=== PATIENT | male | born 1940 | race Caucasian/White ===

== ENCOUNTER 2017-11-25 03:04 | Emergency (ER) | payer MEDICARE ==
[~2017-11-25] VITALS: Ht 182.9 cm; Wt 99.8 kg
[2017-11-25] MEDS ORDERED: ONDANSETRON HCL 4 MG ORAL DISINTEGRATING TAB PO ONE (03:15)
[2017-11-25 03:19] LABS: BASOPHILS # (AUTO) 0.1 (0.0-0.1); BASOPHILS % 0.7 % (0.0-1.0); EOSINOPHILS # (AUTO) 0.2 (0.0-0.4); EOSINOPHILS % 1.3 % (0.0-6.0); HEMATOCRIT 45.5 % (38.2-49.6); HEMOGLOBIN 15.2 g/dL (14.0-18.0); LYMPHOCYTES # (AUTO) 1.3 (1.0-3.2); MEAN CORPUSCULAR HEMOGLOBIN 27.6 pg (28-32); MEAN CORPUSCULAR HGB CONC 33.4 g/dL (31-35); MEAN CORPUSCULAR VOLUME 82.6 fL (81-99); MONOCYTES # (AUTO) 0.4 (0.2-0.8); MONOCYTES % 3.5 % (4.4-11.3); NEUTROPHILS # (AUTO) 9.9 (2.1-6.9); NEUTROPHILS % 82.9 % (38.7-80.0); PLATELET COUNT 284 x10e3/uL (140-360); RED BLOOD COUNT 5.51 x10e6/uL (4.3-5.7); RED CELL DISTRIBUTION WIDTH 14.6 % (11.7-14.4)
[2017-11-25] MEDS ORDERED: DIATRIZOATE MEGL/DIATRIZOA SOD 30 ML BTL PO ONE (03:24)
[2017-11-25 03:37] LABS: ALBUMIN 4.5 g/dL (3.5-5.0); ALBUMIN/GLOBULIN RATIO 1.5 (0.8-2.0); ANION GAP 14.7 mmol/L (8-16); CALCIUM 10.2 mg/dL (8.4-10.2); CREATININE, SERUM 1.56 mg/dL (0.72-1.25); POTASSIUM 3.7 mmol/L (3.5-5.1)
[2017-11-25 03:56] LABS: CREATINE KINASE 90 IU/L (30-200)
[2017-11-25 03:59] LABS: BILIRUBIN,URINE NEGATIVE (NEGATIVE); CLARITY,URINE CLEAR (CLEAR); COLOR,URINE YELLOW (YELLOW); KETONES,URINE NEGATIVE (NEGATIVE); LEUKOCYTE ESTERASE ,URINE NEGATIVE (NEGATIVE); NITRITE,URINE NEGATIVE (NEGATIVE); PROTEIN,URINE DIPSTICK NEGATIVE (NEGATIVE); URINE UROBILINOGEN 0.2 mg/dL (0.2 - 1)
[2017-11-25 04:15] LABS: BACTERIA,URINE RARE /HPF; EPITHELIAL CELLS,URINE RARE /LPF; RBC,URINE 0-5 /HPF (0-5)
[2017-11-25] MEDS ORDERED: SODIUM CHLORIDE 0.9% 1000ML 1,000 ML IV ONE (04:15)
--- NOTE | 2017-11-25 06:00 | Diagnostic Imaging Report ---
EXAM: CT Abdomen and Pelvis WITH contrast INDICATION: Abdominal pain COMPARISON: None. TECHNIQUE: Abdomen and pelvis were scanned utilizing a multidetector helical scanner from the lung base to the pubic symphysis after administration of IV contrast. Coronal and sagittal reformations were obtained. Routine protocol was performed. Scan was performed when during portal venous phase. IV CONTRAST: 100 mL of Isovue-370 ORAL CONTRAST: Gastrografin RADIATION DOSE: Total DLP: 739.88 mGy*cm Estimated effective dose: (DLP x 0.015 x size factor) mSv COMPLICATIONS: None FINDINGS: LINES and TUBES: None. LOWER THORAX: Minimal bibasilar atelectasis HEPATOBILIARY: No focal hepatic lesions. No biliary ductal dilation. GALLBLADDER: Gallbladder appears hyperemic throughout with evidence of wall thickening and edema . SPLEEN: No splenomegaly. PANCREAS: No focal masses or ductal dilatation. ADRENALS: No adrenal nodules KIDNEYS/URETERS: Kidneys enhance symmetrically. No hydronephrosis. No cystic or solid mass lesions. 4 mm stone in the inferior left renal collecting system. GI TRACT: No abnormal distention, wall thickening, or evidence of bowel obstruction. There are diverticula within the colon without evidence of diverticulitis. Appendix is normal. 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 VESSELS: There is mild atherosclerotic disease in the aorta and major arterial branches. PERITONEUM / RETROPERITONEUM: No free air or fluid. BONES: There are degenerative changes in the lumbar spine. SOFT TISSUES: Unremarkable. IMPRESSION: 1. Findings are suspicious for early cholecystitis in the appropriate clinical setting. Correlation with right upper quadrant ultrasound is recommended 2. Left-sided nephrolithiasis without hydronephrosis. 3. Diverticulosis of the sigmoid colon. Signed by: Dr. Rah Lux M.D. on 11/25/2017 5:56 AM
[2017-11-25 06:15] VITALS: BP 112/72
[2017-11-25] MEDS ORDERED: SODIUM CHLORIDE 0.9% 50ML 50 ML ONE (11:19)
[2017-11-25] MEDS ORDERED: IOPAMIDOL 370 MG/ML 200 ML INFUS..BTL INJ ONE (11:20)
== END 2017-11-25 06:49 | disposition home or self-care (01) ==
LOC: ER 03:04
DX: R10.84 Generalized abdominal pain (principal); R11.2 Nausea with vomiting, unspecified; Z87.891 Personal history of nicotine dependence
CPT/HCPCS: 36415; 74177; 80053; 81001; 82150; 82550; 82553; 83690; 84484; 85025; 93005; 99284; J7030; Q9967

== ENCOUNTER 2025-02-05 09:08 | Inpatient (IN) | payer MEDICARE ==
[~2025-02-05] VITALS: Ht 177.8 cm; Wt 73.9 kg
[2025-02-05 09:33] VITALS: TEMP 98.3
[2025-02-05 10:04] LABS: BASOPHILS % 0.4 % (0.0-1.0); EOSINOPHILS % 0.1 % (0.0-6.0); LYMPHOCYTES % 13.5 % (18.0-39.1); MONOCYTES % 4.3 % (4.4-11.3); NEUTROPHILS % 81.2 % (38.7-80.0); RED CELL DISTRIBUTION WIDTH 15.4 % (11.7-14.4)
[2025-02-05] MEDS: Morphine 4mg INJECTION 4 MG/ML INJ IV STA ×2 (10:17→12:18)
[2025-02-05] MEDS: ONDANSETRON HCL INJ 2MG/ML 2ML 2 MG/ML VIAL IV STA ×2 (10:17→12:18)
[2025-02-05] MEDS: SODIUM CHLORIDE 0.9% 1000ML 1,000 ML IV STA (10:18)
[2025-02-05 10:20] LABS: EST GLOMERULAR FILTRATION RATE 70.0 ML/MIN (>=60)
[2025-02-05] MEDS ORDERED: IOPAMIDOL 370 MG/ML 100 ML INFUS..BTL INJ ONE (10:25)
[2025-02-05 10:32] LABS: INR 0.87
[2025-02-05] MEDS ORDERED: ONDANSETRON HCL INJ 2MG/ML 2ML 2 MG/ML VIAL IV PRN (13:00)
[2025-02-05] MEDS ORDERED: HYDROMORPHONE 1MG/1ML INJ IV PRN (13:00)
[2025-02-05] MEDS: SODIUM CHLORIDE 0.9% 1000ML 1,000 ML IV SCH (13:34)
[2025-02-05] MEDS ORDERED: ACETAMINOPHEN 325 MG TAB PO PRN (15:45)
[2025-02-05] MEDS ORDERED: DIPHENHYDRAMINE HCL 25 MG CAP PO PRN (15:45)
[2025-02-05] MEDS ORDERED: DEXTROSE 50% SYRINGE 50 ML IV PRN (15:45)
[2025-02-05] MEDS ORDERED: LIDOCAINE 4% PATCH TP PRN (15:45)
[2025-02-05] MEDS ORDERED: ALBUTEROL/IPRATROPIUM 3 ML NEB NEB PRN (15:45)
[2025-02-05] MEDS ORDERED: DOCUSATE SODIUM 100 MG CAP PO PRN (15:45)
[2025-02-05] MEDS ORDERED: BENZONATATE 100 MG CAP PO PRN (15:45)
[2025-02-05] MEDS ORDERED: HYDRALAZINE HCL 20 MG/ML VIAL IV PRN (15:45)
[2025-02-05] MEDS ORDERED: POTASSIUM CHLORIDE 20 MEQ TAB CR PO PRN (15:45)
[2025-02-05] MEDS ORDERED: SIMETHICONE 80 MG CHEW PO PRN (15:45)
[2025-02-05 16:21] VITALS: PULSE 74; RESP 20; O2SAT 96
[2025-02-05 17:22] VITALS: PULSE 64; RESP 18
[2025-02-05 18:11] VITALS: BP 131/87; PULSE 61; RESP 20; TEMP 97.8; O2SAT 95
[2025-02-05] MEDS ORDERED: MULTI-VITAMIN1 EACH PO (18:16)
[2025-02-05] MEDS ORDERED: MAGNESIUM OXID400 MG PO (18:16)
[2025-02-05] MEDS ORDERED: AMLODIPINE BESYL5 MG PO (18:16)
[2025-02-05 18:50] VITALS: BP 131/87; PULSE 61; RESP 20; TEMP 97.8; O2SAT 95
[2025-02-05 20:00] VITALS: BP 108/88; PULSE 66; RESP 18; TEMP 97.8; O2SAT 96
[2025-02-05] MEDS: MELATONIN 5 MG TABLET PO PRN (22:08)
[2025-02-06] VITALS (8 sets, daily range): BP systolic 97–124; BP diastolic 71–83; PULSE 61–70; RESP 16–22; TEMP 97.7–98.8; O2SAT 93–99
[2025-02-06 01:44] LABS: EST GLOMERULAR FILTRATION RATE 77.0 ML/MIN (>=60)
[2025-02-06 05:29] LABS: BASOPHILS % 0.7 % (0.0-1.0); EOSINOPHILS % 0.9 % (0.0-6.0); LYMPHOCYTES % 29.6 % (18.0-39.1); MONOCYTES % 8.3 % (4.4-11.3); NEUTROPHILS % 59.8 % (38.7-80.0); RED CELL DISTRIBUTION WIDTH 15.6 % (11.7-14.4)
[2025-02-06 06:10] LABS: EST GLOMERULAR FILTRATION RATE 63.0 ML/MIN (>=60)
[2025-02-06] MEDS: PANTOPRAZOLE SOD 40 MG TABEC PO SCH (07:30)
[2025-02-07] VITALS (9 sets, daily range): BP systolic 103–147; BP diastolic 65–92; PULSE 60–80; RESP 13–20; TEMP 97.5–99; O2SAT 93–98
[2025-02-07 05:34] LABS: BASOPHILS % 0.7 % (0.0-1.0); EOSINOPHILS % 2.2 % (0.0-6.0); LYMPHOCYTES % 21.7 % (18.0-39.1); MONOCYTES % 8.4 % (4.4-11.3); NEUTROPHILS % 66.1 % (38.7-80.0); RED CELL DISTRIBUTION WIDTH 15.5 % (11.7-14.4)
[2025-02-07 06:11] LABS: EST GLOMERULAR FILTRATION RATE 61.0 ML/MIN (>=60)
[2025-02-07] MEDS ORDERED: LIDOCAINE HCL 2% LOCAL INJ 5 ML SDV VIAL INJ ONE (12:22)
[2025-02-07] MEDS ORDERED: SEVOFLURANE INHAL SOLN 250 ML PEN BTL ONE (12:22)
[2025-02-07] MEDS ORDERED: PROPOFOL IV EMULSION 10 MG/ML 20 ML VIAL ONE (12:22)
[2025-02-07] MEDS ORDERED: ROCURONIUM BROMIDE 1 ML IV ONE (12:22)
[2025-02-07] MEDS ORDERED: FENTANYL CITRATE/PF 100MCG/2 ML INJ ONE (12:22)
[2025-02-07] MEDS ORDERED: ONDANSETRON HCL INJ 2MG/ML 2ML 2 MG/ML VIAL ONE (13:33)
[2025-02-07] MEDS ORDERED: DEXAMETHASONE SOD PHOS INJ 4 MG/ML SDV ONE (13:33)
[2025-02-07] MEDS ORDERED: MIDAZOLAM HCL 2 MG/2 ML VIAL ONE (14:05)
[2025-02-07] MEDS ORDERED: ATROPINE SULFATE 1 MG/ML VIAL ONE (15:13)
[2025-02-07] MEDS ORDERED: SUGAMMADEX SODIUM 200 MG/2 ML VIAL IV ONE (15:14)
[2025-02-07] MEDS: MEPERIDINE HCL INJ 25 MG/ML VIAL ONE (15:45)
[2025-02-08] VITALS (7 sets, daily range): BP systolic 95–114; BP diastolic 68–78; PULSE 56–64; RESP 16–21; TEMP 97.1–99.5; O2SAT 94–99
[2025-02-08 06:20] LABS: EST GLOMERULAR FILTRATION RATE 56.0 ML/MIN (>=60)
[2025-02-08] MEDS: ACETAMINOPHEN/CODEINE 300MG - 30MG TAB PO PRN (10:20)
== END 2025-02-08 16:14 | disposition home or self-care (01) | DRG 417 ==
LOC: ER 09:10 → ERHOLD 13:02 → MED/SURG 18:04
PROVIDERS: ADMIT Internal Medicine; ATTEND Internal Medicine
PROC: 0FT44ZZ Resection of Gallbladder, Percutaneous Endoscopic Approach (ICD-10-PCS; principal; 2025-02-07 14:04)
DX: K80.00 Calculus of gallbladder with acute cholecystitis without obstruction (principal); K85.10 Biliary acute pancreatitis without necrosis or infection; I10 Essential (primary) hypertension; E78.5 Hyperlipidemia, unspecified; I71.21 Aneurysm of the ascending aorta, without rupture; R74.01 Elevation of levels of liver transaminase levels; J44.9 Chronic obstructive pulmonary disease, unspecified; F17.200 Nicotine dependence, unspecified, uncomplicated
CPT/HCPCS: 36415; 71045; 74177; 76705; 80048; 80053; 82550; 83690; 83735; 84484; 85014; 85018; 85025; 85610; 85730; 88304; 93005; 93306; 94799; 99284; J0461; J1100; J2003; J2175; J2250; J2270; J2405; J2470; J2543; J7030; Q9967